=== PATIENT | female | born 1990 ===

== ENCOUNTER 2017-10-07 22:15 | Emergency (ER) | payer BC ==
[2017-10-07 22:20] VITALS: BP 131/86; PULSE 80; RESP 16; TEMP 97.8; O2SAT 97
[2017-10-07] MEDS ORDERED: Sodium Chloride 0.9% 1,000 ML IV STA (22:33)
[2017-10-07] MEDS ORDERED: DiphenhydrAMINE 50 mg/ml Inj IVP STA (22:33)
--- NOTE | 2017-10-07 22:36 | ED PDOC ---
HPI: Allergic Reaction Time Seen by Provider: 10/07/17 22:34 Chief Complaint (Nursing): Allergic Reaction Chief Complaint (Provider): allergic reaction History Per: Patient (26 y/o female here with rash noted on face after washing with acne wash today. Denies any fevers/chills. Notes moderate eyelid and facial swelling despite benadryl 25 mg x 1 dose Denies any sob/throat swelling. ) Past Medical History Reviewed: Historical Data, Nursing Documentation, Vital Signs Vital Signs: Last Vital Signs Temp 97.8 F 10/07/17 22:17 Pulse 80 10/07/17 22:17 Resp 16 10/07/17 22:17 BP 131/86 10/07/17 22:17 Pulse Ox 97 10/07/17 22:17 - Family History Family History: States: Unknown Family Hx - Immunization History Hx Tetanus Toxoid Vaccination: No Hx Influenza Vaccination: No Hx Pneumococcal Vaccination: No - Home Medications Home Medications: Ambulatory Orders Medication Instructions Recorded medroxyPROGESTERONEone Acetate 5 mg PO BID #28 tab 03/21/15 [Provera] Amoxicillin/Clavulanate [Augmentin 1 tab PO BID #20 tab 07/11/17 875 MG-125 MG] DiphenhydrAMINE [Benadryl] 25 mg PO Q6H #20 cap 07/11/17 Famotidine [Pepcid] 20 mg PO DAILY #30 tab 07/11/17 Sulfamethoxazole/Trimethoprim 1 tab PO BID #14 tab 07/11/17 [Bactrim DS 800 mg-160 mg] DiphenhydrAMINE [Benadryl] 50 mg PO Q6 PRN #24 cap 10/07/17 Famotidine [Pepcid] 20 mg PO BID #10 tab 10/07/17 predniSONE [predniSONE Tab] 3 tab PO DAILY #12 tab 10/07/17 - Allergies Allergies/Adverse Reactions: Allergies Allergy/AdvReac Type Severity Reaction Status Date / Time No Known Allergies Allergy Verified 03/21/15 18:11 Review of Systems ROS Statement: Except As Marked, All Systems Reviewed And Found Negative Physical Exam - Reviewed Nursing Documentation Reviewed: Yes Vital Signs Reviewed: Yes - Physical Exam Appears: Positive for: Well, Non-toxic, No Acute Distress Head Exam: Positive for: ATRAUMATIC, NORMAL INSPECTION, NORMOCEPHALIC Skin: Positive for: Normal Color, Warm, DRY Eye Exam: Positive for: EOMI, Normal appearance, PERRL ENT: Positive for: Normal ENT Inspection Neck: Positive for: Normal, Painless ROM Cardiovascular/Chest: Positive for: Regular Rate, Rhythm Respiratory: Positive for: CNT, Normal Breath Sounds Gastrointestinal/Abdominal: Positive for: Normal Exam, Soft Back: Positive for: Normal Inspection Extremity: Positive for: Normal ROM Neurologic/Psych: Positive for: Alert, Oriented - ECG O2 Sat by Pulse Oximetry: 97 Disposition - Clinical Impression Clinical Impression: Allergic reaction - Patient ED Disposition Is Patient to be Admitted: No - Disposition Disposition: Routine/Home Disposition Time: 23:26 Condition: FAIR Prescriptions: DiphenhydrAMINE [Benadryl] 50 mg PO Q6 PRN #24 cap PRN Reason: Rash Famotidine [Pepcid] 20 mg PO BID #10 tab predniSONE [predniSONE Tab] 3 tab PO DAILY #12 tab Instructions: Contact Dermatitis (DC)
[2017-10-07] MEDS ORDERED: DiphenhydrAMINE 50 mg/ml Inj ONE (22:52)
== END 2017-10-07 23:47 | disposition home or self-care (01) ==
LOC: H.ER 22:15
DX: T78.40XA Allergy, unspecified, initial encounter (principal)

== ENCOUNTER 2018-01-01 14:31 | Emergency (ER) | payer BC ==
[2018-01-01 14:41] VITALS: BP 132/90; PULSE 70; RESP 18; TEMP 97.7; O2SAT 99
--- NOTE | 2018-01-01 14:54 | ED PDOC ---
HPI: CCC, URI, Sore Throat Time Seen by Provider: 01/01/18 14:43 Chief Complaint (Nursing): ENT Problem Chief Complaint (Provider): Throat Pain History Per: Patient History/Exam Limitations: no limitations Onset/Duration Of Symptoms: Days (x2) Additional Complaint(s): 27 year old female, [employer] registration employee, presents to ED with complaints of sore throat and pain with swallowing for the past 2 days. Patient took mucinex at home with minimal relief, last dose at noon today. She reports a history of strep infections in the past with similar symptoms. Otherwise: (-) fever, (-) chills, (-) cough, (-) ear pain, (-) nausea, (-) vomiting, (-) diarrhea, (-) chest pain, or (-) abdominal pain. LMP: 12/30/17. PCP: none provided Past Medical History Reviewed: Historical Data, Nursing Documentation, Vital Signs Vital Signs: Last Vital Signs Temp 97.7 F 01/01/18 14:38 Pulse 70 01/01/18 14:38 Resp 18 01/01/18 14:38 BP 132/90 01/01/18 14:38 Pulse Ox 99 01/01/18 14:38 - Medical History PMH: No Chronic Diseases - Surgical History Surgical History: No Surg Hx - Family History Family History: States: Unknown Family Hx - Home Medications Home Medications: Ambulatory Orders Medication Instructions Recorded medroxyPROGESTERONEone Acetate 5 mg PO BID #28 tab 03/21/15 [Provera] Amoxicillin/Clavulanate [Augmentin 1 tab PO BID #20 tab 07/11/17 875 MG-125 MG] DiphenhydrAMINE [Benadryl] 25 mg PO Q6H #20 cap 07/11/17 Famotidine [Pepcid] 20 mg PO DAILY #30 tab 07/11/17 Sulfamethoxazole/Trimethoprim 1 tab PO BID #14 tab 07/11/17 [Bactrim DS 800 mg-160 mg] DiphenhydrAMINE [Benadryl] 50 mg PO Q6 PRN #24 cap 10/07/17 Famotidine [Pepcid] 20 mg PO BID #10 tab 10/07/17 RX: predniSONE [predniSONE Tab] 3 tab PO DAILY #12 tab 10/07/17 RX: Amoxicillin 875 mg PO BID #14 tab 01/01/18 RX: Naproxen 500 mg PO BID PRN #20 tab 01/01/18 - Allergies Allergies/Adverse Reactions: Allergies Allergy/AdvReac Type Severity Reaction Status Date / Time No Known Allergies Allergy Verified 03/21/15 18:11 Review of Systems ROS Statement: Except As Marked, All Systems Reviewed And Found Negative Constitutional: Negative for: Fever, Chills ENT: Positive for: Throat Pain (with painful swallowing). Negative for: Ear Pain Cardiovascular: Negative for: Chest Pain Respiratory: Negative for: Cough Gastrointestinal: Negative for: Nausea, Vomiting, Abdominal Pain, Diarrhea Physical Exam - Reviewed Nursing Documentation Reviewed: Yes Vital Signs Reviewed: Yes - Physical Exam Comments: GENERAL APPEARANCE: Patient is awake, alert, oriented x 3, in no acute distress. Resting comfortably. SKIN: Warm, dry; (-) cyanosis, (-) rash. ENMT: Mucous membranes are moist. Airway patent: (-) stridor. Pharynx: (+) erythema bilaterally, (+) exudate on right tonsil. 2+ hypertrophy bilaterally. (-) pseudomembranes (-) tongue elevation NECK: Supple, FROM CARDIAC: (-) irregularity RESPIRATORY: lungs clear to auscultation bilaterally (-) rales (-) wheezing (-) rhonchi. Speaking in full sentences, respirations even and nonlabored. EXTREMITIES: (-) deformity NEURO AND PSYCH: Mental status as above; (-) focal findings. Gait: steady. Speech: clear. - ECG O2 Sat by Pulse Oximetry: 99 (RA) Pulse Ox Interpretation: Normal Medical Decision Making Medical Decision Making: Initial Impression: Tonsillitis Initial Plan: * Amoxil 500mg PO * Throat culture * Rapid strep * Re-evaluation 1530 Rapid Strep: Negative On re-evaluation, patient reports improvement of symptoms. Vitals stable. Lab/Diagnostic results d/w the patient in great detail. Diagnosis of tonsillitis, throat pain d/w the patient. Based on history, exam and diagnostic results, plan will be for outpatient follow up with clinic/PMD. Patient instructed to follow-up with pmd / referral provided / the clinic in 1- 2 days without fail. Advised to take medication as prescribed. Return to the emergency room at any time for any new or worsening symptoms. Patient states she fully agrees with and understands discharge instructions. States that she agrees with the plan and disposition. Verbalized and repeated discharge instructions and plan. I have given the patient opportunity to ask any additional questions. Scribe Attestation: Documented by Mandi Myers, acting as a scribe for Starr Blum PA-C. Provider Scribe Attestation: All medical record entries made by the Scribe were at my direction and personally dictated by me. I have reviewed the chart and agree that the record accurately reflects my personal performance of the history, physical exam, medical decision making, and the department course for this patient. I have also personally directed, reviewed, and agree with the discharge instructions and disposition. Disposition - Clinical Impression Clinical Impression: Tonsillitis, Throat pain in adult - Patient ED Disposition Is Patient to be Admitted: No Counseled Patient/Family Regarding: Studies Performed, Diagnosis, Need For Followup, Rx Given - Disposition Referrals: [facility] [Outside] Disposition: Routine/Home Disposition Time: 15:30 Condition: STABLE Additional Instructions: The emergency medical care you received today was directed at your acute symptoms. If you were prescribed any medication, please fill it and take as directed. It may take several days for your symptoms to resolve. Return to the Emergency Department if your symptoms worsen, do not improve, or if you have any other problems. Please contact your doctor in 2 days for re-evaluation and follow up / or call one of the physicians/clinics you have been referred to that are listed on the Patient Visit Information form that is included in your discharge packet. Bring any paperwork you were given at discharge with you along with any medications you are taking to your follow up visit. Our treatment cannot replace ongoing medical care by a primary care provider (PCP) outside of the emergency department. Prescriptions: RX: Amoxicillin 875 mg PO BID #14 tab RX: Naproxen 500 mg PO BID PRN #20 tab PRN Reason: Pain, Moderate (4-7) Instructions: Sore Throat in Adults Forms: [employer] (Armenian), [facility] ED School/Work Excuse Print Language: MONGOLIAN - POA Present On Arrival: None Results - Lab Results Lab Results: 01/01/18 14:47 Grp A Beta Strep Ag Negative
[2018-01-01] MEDS ORDERED: Naproxen 500 MG TAB PO STA (15:08)
[2018-01-01] MEDS ORDERED: Naproxen 500 MG TAB PO ONE (15:10)
== END 2018-01-01 15:39 | disposition home or self-care (01) ==
LOC: H.ER 14:31
DX: J03.90 Acute tonsillitis, unspecified (principal); J02.9 Acute pharyngitis, unspecified